=== PATIENT | male | born 1960 | race African-American/Black ===

== ENCOUNTER 2016-09-26 12:01 | Emergency (ER) | payer MEDICARE, OTHER ==
--- NOTE | ~2016-09-26 | US85 ---
[facility] A Service of [facility] RADIOLOGY TEXT RESULTS PATIENT: JONO BRYANT LOCATION: [place] : 60 UNIT #: [id number] AGE: [address]: Marina Mesa APRN SEX: M ORDER DR: [id number] [facility] [address] [facility]. [place], [place] [address] [id number] MR#: [id number] Acc #: [id number] NAME: JONO BRYANT : 1960 SEX: M STUDY DATE/TIME: 09/26/2016 11:00 UNIT: CFTX ROOM: STUDY DESCRIPTION: [facility] or [facility] Attending Physician: Marina Mesa A.P.R.N. Ordering Physician: Ed Harpreet Campos M.D. Primary Care Physician: Beau Arias M.D. MEDICAL IMAGING REPORT This report is preliminary unless electronic signature is present EXAM Left lower extremity venous Duplex, 09/26/2016. HISTORY Left lower extremity pain and swelling for 1 day. Evaluate for deep vein thrombosis. TECHNIQUE Venous ultrasound examination of the left lower extremity was performed using grayscale, spectral Doppler and color flow Doppler imaging. FINDINGS The examination is negative. There is no evidence of left lower extremity deep venous thrombus from the groin to the lower calf. Visualized greater saphenous vein is also patent. IMPRESSION Negative examination. No evidence of left lower extremity deep venous thrombosis. Dictated by... Abdon Haddad M.D. THIS IS AN ELECTRONICALLY VERIFIED REPORT Abdon Haddad M.D. at 09/26/2016 4:58 PM KRT/jesus TD: 09/26/2016 14:17 JOB #: [id number] [facility] A Service [facility] RADIOLOGY TEXT RESULTS PATIENT: JONO BRYANT LOCATION: [facility] : 60 UNIT #: [id number] AGE: [address]: Marina Mesa APRN SEX: M ORDER DR: MEDICAL IMAGING REPORT COPY
== END 2016-09-26 12:11 | disposition home or self-care (01) ==
LOC: CFTX 12:01
DX: R60.0 Localized edema (principal)
CPT/HCPCS: 93971; 99284